=== PATIENT | male | born 1960 | race Caucasian/White ===

== ENCOUNTER → 2021-01-08 09:19 | Day surgery (SDC) | payer MEDICARE, BC, SELFPAY ==
[2021-01-08 09:37] VITALS: BP 122/80; PULSE 50; RESP 17; TEMP 36.2; O2SAT 97; BMI 31.5
[2021-01-08] MEDS: LACTATED RINGERS 1,000 ML 200 ML IV (09:54)
--- NOTE | 2021-01-08 11:31 | PM.HP.1 ---
History of Present Illness History of Present Illness Chief complaint: SCREENING COLONOSCOPY Narrative: Patient is a gentleman here for screening colonoscopy. Last exam about 15 years ago. Patient History Medical History FHx: total knee replacement (~2014) Hypertension Kidney stones Past heart attack Traumatic brain injury Surgical History H/O vasectomy Hx of hand surgery Family & Social History Social History: household members spouse Tobacco & Substance use: Smoking Status Current every day smoker Smoking packs per day 0.5 alcohol intake never Substance Use Type does not use Meds Home Medications and Allergies Home Medications Medication Instructions Recorded Confirmed Type Seroquel 50 mg PO PRN PRN 01/08/21 01/08/21 History aspirin 81 mg PO DAILY 01/08/21 01/08/21 History atorvastatin 40 mg PO DAILY 01/08/21 01/08/21 History clopidogrel 75 mg PO DAILY 01/08/21 01/08/21 History latanoprost 1 mg EYE-BOTH DAILY 01/08/21 01/08/21 History propranolol 80 mg PO BID 01/08/21 01/08/21 History sertraline 100 mg PO DAILY 01/08/21 01/08/21 History Allergies Allergy/AdvReac Type Severity Reaction Status Date / Time No Known Drug Allergies Allergy Verified 01/08/21 09:34 Review of Systems Review of Systems Narrative: Patient had a heart attack in the past. He does have occasional angina and is treated with medication. He said he had a coronary angiogram at the time of his heart attack but no stents were placed no angioplasty was performed. He has been treated with medications since. No breathing difficulties at this time. No black or bloody bowel movements. Exam Vital Signs (past 8 hours): - 01/08/21 09:37 Temperature 97.1 F L Pulse Rate 50 L Respiratory Rate 17 Blood Pressure 122/80 Pulse Oximetry 97 Oxygen Delivery Method Room Air Narrative Exam Narrative: Pleasant cooperative patient no apparent distress. Lungs are clear to auscultation. No rales or rhonchi. Heart regular rate and rhythm no murmur gallop. Abdomen is soft nontender without mass. No obvious hernias. Patient is alert and oriented x3. Assessment & Plan Assessment and plan (1) Screening for colon cancer: Status: Acute Assessment & Plan narrative: Patient here for colonoscopy. I have discussed the procedure and the rationale with the patient including risks of bleeding, perforation which would necessitate a major operation, failure to find remove all lesions and the potential to tattoo. They appeared to understand and wished to proceed. I did explain that because of his Plavix he is at increased risk of bleeding. Time Spent With Patient Critical Care time: I spent a total of [] minutes of critical care time on this patient's care today; this time is exclusive of procedural time.
--- NOTE | 2021-01-08 11:33 | PM.PREOP ---
Pre-operative Note COVID-19 COVID-19 status: Negative Result date/Date tested (Pos, Neg/Pending): 01/06/21 Interval Note History & Physical reviewed/Exam performed by Physician: Yes Changes to H&P: No ASA Class (for procedural sedation): III
[2021-01-08] MEDS: fentaNYL 250 MCG/5 ML INJ IV (12:05)
[2021-01-08] MEDS: MIDAZOLAM 5 MG/5 ML VIAL IV (12:05)
[2021-01-08 12:07] VITALS: BP 118/69; PULSE 54; RESP 10; TEMP 36.9; O2SAT 95
--- NOTE | 2021-01-08 12:11 | PM.OP.EC ---
Operative Date/Time/Diagnoses Date of procedure: 01/08/21 Time of procedure: 12:11 Pre-op diagnosis: Screening examination. Last exam 15 years ago. Post-op diagnosis: same Procedure & Clinicians Study performed: Colonoscopy Same procedure as scheduled: Yes Indications: Screening for colon cancer Surgeon: Brendan Terrell Procedure Notes SCOAP/Timeout: Performed Procedure in detail: The patient was placed in the left lateral decubitus position and underwent IV sedation directed by the surgeon consisting of fentanyl and Versed. Digital exam was remarkable for no palpable masses. I could not feel is prostate. The scope was inserted and advanced through the rectum into the sigmoid, descending, transverse, and ascending colon. Patient was repositioned and a stiffener inserted and pressure applied in order to reach the cecum. The cecum was reached identified by the ileocecal valve and the appendiceal opening. The scope was gradually brought out. NoPolyps were found. The scope ultimately was retroflexed in the rectum. The appearance was remarkable for internal hemorrhoids without ulceration. The scope was removed and the patient tolerated the procedure well. Of note the prep was slightly suboptimal. There was a large amount of thin stool coating the surface of the colon. Well I was able to irrigate most of this off there were some areas that a small polyp could have been missed. Because of this the patient should have a repeat colonoscopy in 5 years. Sooner for symptoms. Scope withdrawal time: 7-1/2 minutes Sedation minutes: 25 Specimen(s): none sent Complications: none Post-procedure Recommendations: Colonscopy in 5 years (Due to less than optimal prep) Follow up: as needed Disposition: PACU
[2021-01-08 12:15] VITALS: BP 115/86; PULSE 53; RESP 10; O2SAT 95
[2021-01-08 12:17] VITALS: BP 117/57; PULSE 54; RESP 12; O2SAT 94
[2021-01-08 12:23] VITALS: BP 119/65; PULSE 52; RESP 10; O2SAT 96
[2021-01-08 12:38] VITALS: BP 120/61; PULSE 53; RESP 12; TEMP 36.6; O2SAT 96
== END | disposition home or self-care (01) ==
PROVIDERS: PCP Family Medicine; Referring Provider Specialist; Visit Provider Specialist
PROC: 0DJD8ZZ Inspection of Lower Intestinal Tract, Via Natural or Artificial Opening Endoscopic (ICD-10-PCS; CPT 45378; principal; 2021-01-08 10:45)
DX: Z12.11 Encounter for screening for malignant neoplasm of colon (principal); I10 Essential (primary) hypertension; I25.2 Old myocardial infarction; F17.210 Nicotine dependence, cigarettes, uncomplicated; K64.8 Other hemorrhoids
CPT/HCPCS: G0121; J2250; J3010